=== PATIENT | female | born 1995 | race Caucasian/White ===

== ENCOUNTER 2021-05-13 11:59 | Emergency (ER) | payer OTHER ==
[~2021-05-13] VITALS: Ht 167.6 cm; Wt 83.0 kg
[~2021-05-13 11:59] MED LIST: FOLIC ACID1 MG; PENTASA500 MG; VITAMIN D10000 UNIT
[2021-05-13] MEDS ORDERED: HUMIRA40 MG/0.2 (12:16)
== END 2021-05-13 16:50 | disposition home or self-care (01) ==
LOC: ER 11:59
DX: A90 Dengue fever [classical dengue] (principal)